=== PATIENT | female | born 1960 | race Caucasian/White ===

== ENCOUNTER 2017-09-26 16:38 | Emergency (ER) | payer OTHER ==
[2017-09-26] MEDS: HYDROcodone/APAP 5/325MG 1 TAB TABLET PO ×2 (18:01)
== END 2017-09-26 18:17 | disposition home or self-care (01) ==
LOC: ER 16:38
DX: S92.152A Displaced avulsion fracture (chip fracture) of left talus, initial encounter for closed fracture (principal); E78.00 Pure hypercholesterolemia, unspecified; I10 Essential (primary) hypertension; M79.7 Fibromyalgia; I25.2 Old myocardial infarction; K21.9 Gastro-esophageal reflux disease without esophagitis; Z85.41 Personal history of malignant neoplasm of cervix uteri; Z88.0 Allergy status to penicillin; Z88.2 Allergy status to sulfonamides; Z90.710 Acquired absence of both cervix and uterus; Z90.49 Acquired absence of other specified parts of digestive tract; Z88.1 Allergy status to other antibiotic agents; Z88.5 Allergy status to narcotic agent; Z86.718 Personal history of other venous thrombosis and embolism; W06.XXXA Fall from bed, initial encounter; Y93.89 Activity, other specified; Y92.89 Other specified places as the place of occurrence of the external cause; Y99.8 Other external cause status
CPT/HCPCS: 29515; 73562; 73610; 99284

== ENCOUNTER → 2017-12-15 | Outpatient (CLI) | payer OTHER | END | disposition home or self-care (01) | LOC: US 15:18 | DX: M25.572 Pain in left ankle and joints of left foot (principal); I70.292 Other atherosclerosis of native arteries of extremities, left leg | CPT/HCPCS: 93926 ==

== ENCOUNTER 2018-09-27 13:22 | Emergency (ER) | payer OTHER ==
[~2018-09-27] VITALS: Ht 166.4 cm; Wt 108.4 kg
[~2018-09-27 13:22] MED LIST: ALBU2.5V8 IH; CHOL2000 PO; CLIN150C14 PO; CRESTOR10 MG PO; DIAZEPAM10 MG PO; DOCU-109 PO; FURO-68 PO; HYDR-3164 PO; HYDR15CR20 TP; KETO15CR2 TP; MELA1TAB10 PO; METH10TA2 PO; MORP15TA PO; OMEP40CA5 PO; PILO5TAB11 PO; POTA10TA12 PO; PROM25TA10 PO; SPIR25TA5 PO; TOPI200T25 PO; URSO300C26 PO; VENL150C PO; WARF-78 PO; WARF6TAB49 PO
--- NOTE | 2018-09-27 15:53 | PHYS DOC ---
Past Medical History Past Medical History: Cancer, DVT, Fibromyalgia, GERD, High Cholesterol, Hypertension, [place], Migraines, Schizophrenia, Other Additional Past Medical Histor: SJOGREN'S,CERVICAL CANCER,GI BLEED Past Surgical History: Cholecystectomy, Hysterectomy, Other Additional Past Surgical Histo: CARDIAC CATH Alcohol Use: None Drug Use: None Adult General Chief Complaint Chief Complaint: MULTIPLE COMPLAINTS HPI HPI Patient is a 58 year old female who presents to the emergency room with complaints of a migraine headache, low back pain, and hematuria for the last 9 days. Patient states her neurologist told her to come to the emergency room. Patient reports that the headache is in the front of her head and describes the pain as a constant pressure, rating it a 10 out of 10 on the pain scale. Patient states there are no alleviating factors, light seems to make the pain worse. Patient reports feeling dizzy with the headache. She denies any numbness , tingling, or weakness with the pain. Patient denies any increased urinary frequency, dysuria, incontinence, or urgency with urination. She denies any abdominal pain or diarrhea. Patient states that for several months she has experienced vomiting after taking her new Tegretol pill. Patient states she used to take Tegretol capsules but ever since the pharmacist switched her to a pill she is not able to tolerate the medication. Pt also reports having hot and cold spells, she has not measured her temperature. Review of Systems Review of Systems Constitutional: Denies fever or chills [] Eyes: Denies redness, vision changes, or eye pain; reports photosensitivity [] HENT: Denies nasal congestion or sore throat [] Respiratory: Denies cough or shortness of breath [] Cardiovascular: No additional information not addressed in HPI [] GI: see hpi : Denies dysuria or increased frequency, Reports difficulty starting to void and hematuria for 9 days[] Musculoskeletal: Denies back pain Integument: reports dry skin Neurologic: Denies focal weakness or sensory changes; see HPI Endocrine: Denies polyuria or polydipsia [] Complete systems were reviewed and found to be within normal limits, except as documented in this note. Current Medications Current Medications Current Medications Medications (Trade) Dose Ordered Sig/Glen Start Time Stop Time Status Last Admin Dose Admin Diphenhydramine HCl (Benadryl) 25 mg 1X ONCE 09/27/18 16:00 09/27/18 16:01 DC 2/21/19 16:49 25 MG Ketorolac Tromethamine (Toradol 15mg Vial) 15 mg 1X ONCE 09/27/18 16:00 09/27/18 16:01 DC 09/27/18 16:48 15 MG Prochlorperazine Edisylate (Compazine) 10 mg 1X ONCE 09/27/18 16:00 09/27/18 16:01 DC 09/27/18 16:48 10 MG Sodium Chloride 1,000 ml @ 1,000 mls/hr 1X ONCE 09/27/18 16:00 09/27/18 16:59 DC 09/27/18 16:48 1,000 MLS/HR Allergies Allergies Allergies Coded Allergies Type Severity Reaction Last Updated Verified Penicillins Allergy Intermediate RASH 09/27/18 Yes Sulfa (Sulfonamide Antibiotics) Allergy Intermediate 09/27/18 Yes adhesive tape Allergy Intermediate 09/27/18 Yes amoxicillin Allergy Intermediate RASH 09/27/18 Yes ciprofloxacin Allergy Intermediate 09/27/18 Yes Tetracyclines Adverse Reaction Mild "SICK" 09/27/18 Yes codeine Adverse Reaction Mild "SICK" 09/27/18 Yes Physical Exam Physical Exam Constitutional: Well developed, well nourished, no acute distress, non-toxic appearance, obese [] HENT: Normocephalic, atraumatic, bilateral external ears normal, oropharynx moist, no oral exudates, nose normal. [] Eyes: PERRLA, EOMI, conjunctiva normal, no discharge. [] Neck: Normal range of motion, no stridor. [] Cardiovascular:Heart rate regular rhythm, no murmur [] Lungs & Thorax: Bilateral breath sounds clear to auscultation [] Abdomen: Soft, no tenderness, no masses, no pulsatile masses. [] Skin: Warm, dry, no erythema; generalized dry flaky skin Back: no CVA tenderness, no bony tenderness or deformity Extremities: No cyanosis, no clubbing, ROM intact, no edema. [] Neurologic: Alert and oriented X 3, normal motor function, normal sensory function, no focal deficits noted. [] Psychologic: Affect normal, judgement normal, mood normal. [] Current Patient Data Vital Signs Vital Signs Date Time Temp Pulse Resp B/P (MAP) Pulse Ox O2 Delivery O2 Flow Rate FiO2 09/27/18 14:25 98.4 92 16 117/65 (82) 96 Room Air 98.4 Lab Values Laboratory Tests Test 09/27/18 16:40 09/27/18 17:20 09/27/18 18:20 White Blood Count 7.1 x10^3/uL (4.0-11.0) Red Blood Count 4.29 x10^6/uL (3.50-5.40) Hemoglobin 12.5 g/dL (12.0-15.5) Hematocrit 38.4 % (36.0-47.0) Mean Corpuscular Volume 90 fL (79-100) Mean Corpuscular Hemoglobin 29 pg (25-35) Mean Corpuscular Hemoglobin Concent 33 g/dL (31-37) Red Cell Distribution Width 14.1 % (11.5-14.5) Platelet Count 159 x10^3/uL (140-400) Neutrophils (%) (Auto) 64 % (31-73) Lymphocytes (%) (Auto) 29 % (24-48) Monocytes (%) (Auto) 5 % (0-9) Eosinophils (%) (Auto) 2 % (0-3) Basophils (%) (Auto) 1 % (0-3) Neutrophils # (Auto) 4.5 x10^3uL (1.8-7.7) Lymphocytes # (Auto) 2.0 x10^3/uL (1.0-4.8) Monocytes # (Auto) 0.4 x10^3/uL (0.0-1.1) Eosinophils # (Auto) 0.1 x10^3/uL (0.0-0.7) Basophils # (Auto) 0.0 x10^3/uL (0.0-0.2) Sodium Level 142 mmol/L (136-145) Potassium Level 3.5 mmol/L (3.5-5.1) Chloride Level 108 mmol/L (98-107) H Carbon Dioxide Level 26 mmol/L (21-32) Anion Gap 8 (6-14) Blood Urea Nitrogen 20 mg/dL (7-20) Creatinine 1.1 mg/dL (0.6-1.0) H Estimated GFR (Cockcroft-Gault) 50.8 BUN/Creatinine Ratio 18 (6-20) Glucose Level 88 mg/dL (70-99) Calcium Level 8.0 mg/dL (8.5-10.1) L Magnesium Level 2.0 mg/dL (1.8-2.4) Total Bilirubin 0.2 mg/dL (0.2-1.0) Aspartate Amino Transferase (AST) 11 U/L (15-37) L Alanine Aminotransferase (ALT) 16 U/L (14-59) Alkaline Phosphatase 119 U/L (46-116) H Total Protein 6.3 g/dL (6.4-8.2) L Albumin 2.6 g/dL (3.4-5.0) L Albumin/Globulin Ratio 0.7 (1.0-1.7) L Urine Collection Type Unknown Urine Color Yellow Urine Clarity Cloudy Urine pH 5.0 Urine Specific [place] 1.015 Urine Protein Negative mg/dL (NEG-TRACE) Urine Glucose (UA) Negative mg/dL (NEG) Urine Ketones (Stick) Negative mg/dL (NEG) Urine Blood Negative (NEG) Urine Nitrite Negative (NEG) Urine Bilirubin Negative (NEG) Urine Urobilinogen Dipstick 0.2 mg/dL (0.2 mg/dL) Urine Leukocyte Esterase Small (NEG) Urine RBC 0 /HPF (0-2) Urine WBC 1-4 /HPF (0-4) Urine Squamous Epithelial Cells Mod /LPF Urine Bacteria Moderate /HPF (0-FEW) Urine Hyaline Casts Few /HPF Urine Mucus Mod /LPF Laboratory Tests 09/27/18 16:40 Laboratory Tests 09/27/18 17:20 EKG EKG [] Radiology/Procedures Radiology/Procedures PROCEDURE: CT HEAD WO CONTRAST CT HEAD WO CONTRAST History: Headache Comparison: December 11, 2015 Technique: Noncontrast CT imaging was performed of the head. Exposure: One or more of the following individualized dose reduction techniques were utilized for this examination: 1. Automated exposure control 2. Adjustment of the mA and/or kV according to patient size 3. Use of iterative reconstruction technique. Findings: No acute extra-axial or parenchymal hemorrhage is identified. There is no significant intra-axial mass effect, midline shift, or extra-axial fluid collection. The blanchard-white differentiation of the major vascular territories is preserved. The ventricles, sulci, and cisterns are within normal limits in size and configuration. The mastoid air cells and the visualized paranasal sinuses are aerated. No acute calvarial abnormality is identified. Impression: 1. No acute intracranial abnormality is identified. [] Course & Med Decision Making Course & Med Decision Making Pertinent Labs and Imaging studies reviewed. (See chart for details) Dx: migraine headache Pt was given 1L NS, 15 toradol, 10 mg compazine, and 25 mg of benadryl. Reports pain reduced from 10 to a 5/10 on the pain scale. CT head was negative. Pt was informed that UA was negative for blood or infection. Advised pt to follow up with PCP in 1-2 days, return to ER if symptoms worsen. Patient verbalized an understanding of home care, medications, follow-up, and return to ED instructions and was in agreement with the plan of care. [] Dragon Disclaimer Dragon Disclaimer This electronic medical record was generated, in whole or in part, using a voice recognition dictation system. Departure Departure Impression: Primary Impression: Migraine Disposition: HOME, SELF-CARE Condition: STABLE Referrals: DANNIELLE STEVENSON APRN (PCP) Patient Instructions: Migraine Headache, [id number] Additional Instructions: Follow up with your doctor in 1-2 days. There was no blood in your urine. Home to rest. Return to the ER if symptoms worsen. Problem Qualifiers Primary Impression: Migraine Migraine type: persistent migraine aura without cerebral infarction Status migrainosus presence: without status migrainosus Intractability: not intractable Qualified Codes: G43.509 - Persistent migraine aura without cerebral infarction, not intractable, without status migrainosus MANUELA CORONEL APRN Sep 27, 2018 15:53
[2018-09-27] MEDS ORDERED: KETOROLAC 15 MG/ML VIAL. IV ONE (16:00)
[2018-09-27] MEDS ORDERED: IV NORMAL SALINE 1000ML BAG 1,000 ML IV ONE (16:00)
[2018-09-27] MEDS ORDERED: PROCHLORPERAZINE 10 MG/2 ML VIAL. IV ONE (16:00)
[2018-09-27] MEDS ORDERED: diphenhydrAMINE 50 MG/ML VIAL IVP ONE (16:00)
[2018-09-27 16:55] LABS: BASO % 1 % (0-3); EOS # 0.1 x10^3/uL (0.0-0.7); EOS % 2 % (0-3); HEMATOCRIT 38.4 % (36.0-47.0); HEMOGLOBIN 12.5 g/dL (12.0-15.5); LYMPH % 29 % (24-48); MEAN CORPUSCULAR HEMOGLOBIN 29 pg (25-35); MEAN CORPUSCULAR HGB CONC 33 g/dL (31-37); MEAN CORPUSCULAR VOLUME 90 fL (79-100); MONO # 0.4 x10^3/uL (0.0-1.1); MONO % 5 % (0-9); NEUT # 4.5 x10^3uL (1.8-7.7); NEUT % 64 % (31-73); PLATELET COUNT 159 x10^3/uL (140-400); RED BLOOD COUNT 4.29 x10^6/uL (3.50-5.40); RED CELL DISTRIBUTION WIDTH 14.1 % (11.5-14.5); WHITE BLOOD COUNT 7.1 x10^3/uL (4.0-11.0)
--- NOTE | 2018-09-27 17:44 | RAD ---
CT HEAD WO CONTRAST History: Headache Comparison: December 11, 2015 Technique: Noncontrast CT imaging was performed of the head. Exposure: One or more of the following individualized dose reduction techniques were utilized for this examination: 1. Automated exposure control 2. Adjustment of the mA and/or kV according to patient size 3. Use of iterative reconstruction technique. Findings: No acute extra-axial or parenchymal hemorrhage is identified. There is no significant intra-axial mass effect, midline shift, or extra-axial fluid collection. The blanchard-white differentiation of the major vascular territories is preserved. The ventricles, sulci, and cisterns are within normal limits in size and configuration. The mastoid air cells and the visualized paranasal sinuses are aerated. No acute calvarial abnormality is identified. Impression: 1. No acute intracranial abnormality is identified. Electronically signed by: Pascual Cruz MD (09/27/2018 5:41 PM) [id number]
[2018-09-27 17:51] LABS: CREATININE 1.1 mg/dL (0.6-1.0); GFR 50.8; POTASSIUM 3.5 mmol/L (3.5-5.1)
[2018-09-27 17:57] LABS: ALBUMIN 2.6 g/dL (3.4-5.0); ALBUMIN/GLOBULIN RATIO 0.7 (1.0-1.7); TOTAL BILIRUBIN 0.2 mg/dL (0.2-1.0); TOTAL PROTEIN 6.3 g/dL (6.4-8.2)
[2018-09-27 18:29] LABS: BILIRUBIN,URINE NEGATIVE (NEG); CLARITY,URINE CLOUDY; COLOR,URINE YELLOW; NITRITE,URINE NEGATIVE (NEG); PROTEIN,URINE NEGATIVE (NEG-TRACE); UROBILINOGEN,URINE 0.2 mg/dL (0.2 mg/dL)
[2018-09-27 18:45] LABS: SQUAMOUS EPITHELIAL CELL,UR MOD /LPF
[2018-09-27 18:46] LABS: HYALINE CASTS, URINE FEW /HPF; RBC,URINE 0 /HPF (0-2)
[2018-09-27 18:47] LABS: BACTERIA,URINE MODERATE /HPF (0-FEW)
[2018-09-27 19:05] VITALS: BP 146/64
== END 2018-09-27 19:25 | disposition home or self-care (01) ==
LOC: ER 13:22
DX: G43.509 Persistent migraine aura without cerebral infarction, not intractable, without status migrainosus (principal); M54.5 Low back pain; R31.9 Hematuria, unspecified; R42 Dizziness and giddiness; K21.9 Gastro-esophageal reflux disease without esophagitis; E78.00 Pure hypercholesterolemia, unspecified; I10 Essential (primary) hypertension; I25.2 Old myocardial infarction; F20.9 Schizophrenia, unspecified; Z86.718 Personal history of other venous thrombosis and embolism; Z88.0 Allergy status to penicillin; Z88.1 Allergy status to other antibiotic agents; Z88.2 Allergy status to sulfonamides; Z88.5 Allergy status to narcotic agent; Z88.8 Allergy status to other drugs, medicaments and biological substances
CPT/HCPCS: 36415; 70450; 80053; 81001; 83735; 85025; 87086; 96361; 96374; 96375; 99284; J0780; J1200; J1885; J7030

== ENCOUNTER → 2019-05-16 | Day surgery (SDC) | payer OTHER, MEDICAID ==
[~2019-05-16] MED LIST changes: +DIPH25CA58 PO; +IV RINGERS,LACTATED 1000ML 1,000 ML IV ONE; +LIDOCAINE 2% PF 5 ML VIAL. ONE; +OMEP40CA45 PO; -OMEP40CA5 PO; +PROPOFOL 20 ML IV ONE
[2019-05-16 13:48] VITALS: BP 109/53
== END ==
LOC: SURG 12:19
PROVIDERS: ATTEND Internal Medicine Gastroenterology
DX: K22.2 Esophageal obstruction (principal); K29.50 Unspecified chronic gastritis without bleeding; K21.9 Gastro-esophageal reflux disease without esophagitis; D64.9 Anemia, unspecified; M79.7 Fibromyalgia; I80.9 Phlebitis and thrombophlebitis of unspecified site; K58.8 Other irritable bowel syndrome; G43.909 Migraine, unspecified, not intractable, without status migrainosus; F41.9 Anxiety disorder, unspecified; E78.00 Pure hypercholesterolemia, unspecified; I25.2 Old myocardial infarction; F15.90 Other stimulant use, unspecified, uncomplicated; Z88.1 Allergy status to other antibiotic agents; Z88.5 Allergy status to narcotic agent; Z88.0 Allergy status to penicillin; Z88.8 Allergy status to other drugs, medicaments and biological substances; Z87.39 Personal history of other diseases of the musculoskeletal system and connective tissue; Z86.73 Personal history of transient ischemic attack (TIA), and cerebral infarction without residual deficits; Z85.43 Personal history of malignant neoplasm of ovary; Z87.891 Personal history of nicotine dependence; Z86.19 Personal history of other infectious and parasitic diseases; Z90.49 Acquired absence of other specified parts of digestive tract; Z90.710 Acquired absence of both cervix and uterus; Z98.51 Tubal ligation status; Z90.722 Acquired absence of ovaries, bilateral
CPT/HCPCS: 43235; 43450; J2001; J2704

== ENCOUNTER → 2019-06-25 | Outpatient (CLI) | payer OTHER, MEDICAID ==
[2019-05-16 13:48] VITALS: BP 109/53
[~2019-06-25] MED LIST changes: -IV RINGERS,LACTATED 1000ML 1,000 ML IV ONE; -LIDOCAINE 2% PF 5 ML VIAL. ONE; -PROPOFOL 20 ML IV ONE
--- NOTE | 2019-06-25 13:49 | RAD ---
DATE: 06/25/2019. EXAM: DIGITAL DIAGNOSTIC BILATERAL. HISTORY: Fibrocystic disease. COMPARISON: 05/31/2012, 12/15/2015. This study was interpreted with the benefit of Computerized Aided Detection (CAD). FINDINGS: Breast Density: SCATTERED The breast parenchyma shows scattered fibroglandular densities. Breast parenchyma level B.. The parenchyma pattern is stable. Small nodules on the right have stable correlates. Scattered calcifications are benign. There are no suspicious masses, microcalcifications or architectural distortion. BI-RADS CATEGORY: 2 BENIGN FINDING(S). RECOMMENDED FOLLOW-UP: 12M 12 MONTH FOLLOW-UP. 1. Recommend ongoing clinical follow-up of palpable foci or fibrocystic complaints. PQRS compliance statement: Patient information was entered into a reminder system with a target due date 06/25/2020 for the next mammogram. Mammography is a sensitive method for finding small breast cancers, but it does not detect them all and is not a substitute for careful clinical examination. A negative mammogram does not negate a clinically suspicious finding and should not result in delay in biopsying a clinically suspicious abnormality. "Our facility is accredited by the [employer] Mammography Program."
== END | disposition home or self-care (01) ==
LOC: MAMMO 12:45
PROVIDERS: ATTEND Nurse Practitioner Family
DX: N63.10 Unspecified lump in the right breast, unspecified quadrant (principal); R92.1 Mammographic calcification found on diagnostic imaging of breast; N60.19 Diffuse cystic mastopathy of unspecified breast
CPT/HCPCS: 77066

== ENCOUNTER 2019-08-29 19:08 | Emergency (ER) | payer OTHER, MEDICAID ==
[~2019-08-29] VITALS: Ht 167.6 cm; Wt 82.0 kg
[~2019-08-29 19:08] MED LIST changes: -POTA10TA12 PO; +POTASSIUM CHLO10 ME1 PO
--- NOTE | 2019-08-29 19:24 | PHYS DOC ---
Past Medical History Past Medical History: Cancer, DVT, Fibromyalgia, GERD, High Cholesterol, Hypertension, [place], Migraines, Schizophrenia, Other Additional Past Medical Histor: SJOGREN'S,CERVICAL CANCER,GI BLEED Past Surgical History: Cholecystectomy, Hysterectomy, Other Additional Past Surgical Histo: CARDIAC CATH Alcohol Use: None Drug Use: None Adult General HPI HPI 59-year-old female presents to emergency department with complaints of a fall. Patient has chronic anticoagulation history of DVT, hypertension, hyperlipidemia, schizophrenia. States she fell partially 2 days ago, she recently was very per primary care physician with her INR 1.7. Patient reports to Su cyst on her bilateral lower extremities. She has evidence of bruising and ecchymosis to her posterior thigh on both sides. There is no evidence of any cords appreciated on examination. Patient was instructed by her primary care physician to come to the emergency department to rule out clot. She has well describes shortness of breath, she recently was seen wound again with her primary care physician and a chest x-ray was ordered however she has not obtained. When asked why the chest x-ray was ordered she states she was coughing and had shortness of breath and her primary care physician to rule out pneumonia. Patient remains afebrile she's not had any particular concern for systemic symptoms. Review of Systems Review of Systems Constitutional: Denies fever or chills [] Respiratory: Denies cough/+ shortness of breath [] Cardiovascular: No additional information not addressed in HPI [] GI: Denies abdominal pain, + nausea, no vomiting, bloody stools or diarrhea [] Musculoskeletal: Denies back pain or joint pain [] Neurologic: Denies headache, focal weakness or sensory changes [] All other systems were reviewed and found to be within normal limits, except as documented in this note. Current Medications Current Medications Current Medications Medications (Trade) Dose Ordered Sig/Glen Start Time Stop Time Status Last Admin Dose Admin Acetaminophen (Tylenol) 1,000 mg 1X ONCE 08/29/19 22:00 08/29/19 22:01 DC Acetaminophen/ Hydrocodone Bitart (Lortab 5/325) 1 tab 1X ONCE 08/29/19 21:00 08/29/19 21:07 DC Allergies Allergies Allergies Coded Allergies Type Severity Reaction Last Updated Verified Penicillins Allergy Intermediate RASH 05/16/19 Yes Sulfa (Sulfonamide Antibiotics) Allergy Intermediate 05/16/19 Yes adhesive tape Allergy Intermediate 05/16/19 Yes amoxicillin Allergy Intermediate RASH 05/16/19 Yes ciprofloxacin Allergy Intermediate 05/16/19 Yes Tetracyclines Adverse Reaction Intermediate "SICK" 05/16/19 Yes codeine Adverse Reaction Mild "SICK" 09/27/18 Yes Physical Exam Physical Exam Constitutional: Well developed, well nourished, no acute distress, non-toxic appearance. [] HENT: Normocephalic, atraumatic, bilateral external ears normal, oropharynx moist, no oral exudates, nose normal. [] Eyes: PERRLA, EOMI, conjunctiva normal, no discharge. [] Cardiovascular:Heart rate regular rhythm, no murmur [] Lungs & Thorax: Bilateral breath sounds clear to auscultation [] Abdomen: Bowel sounds normal, soft, no tenderness, no masses, no pulsatile masses. [] Skin: Warm, dry, no erythema, no rash. [] Extremities: No tenderness, no edema, posterior thigh echymosis, no chords appreciated[] Neurologic: Alert and oriented X 3, no focal deficits noted. [] Psychologic: Affect normal, judgement normal, mood normal. [] Current Patient Data Vital Signs Vital Signs Date Time Temp Pulse Resp B/P (MAP) Pulse Ox O2 Delivery O2 Flow Rate FiO2 08/29/19 22:43 66 20 92 08/29/19 19:08 98.4 134/67 (89) Room Air 98.4 Lab Values Laboratory Tests Test 08/29/19 19:35 White Blood Count 5.6 x10^3/uL (4.0-11.0) Red Blood Count 3.69 x10^6/uL (3.50-5.40) Hemoglobin 10.8 g/dL (12.0-15.5) L Hematocrit 32.8 % (36.0-47.0) L Mean Corpuscular Volume 89 fL (79-100) Mean Corpuscular Hemoglobin 29 pg (25-35) Mean Corpuscular Hemoglobin Concent 33 g/dL (31-37) Red Cell Distribution Width 13.9 % (11.5-14.5) Platelet Count 151 x10^3/uL (140-400) Neutrophils (%) (Auto) 64 % (31-73) Lymphocytes (%) (Auto) 28 % (24-48) Monocytes (%) (Auto) 6 % (0-9) Eosinophils (%) (Auto) 2 % (0-3) Basophils (%) (Auto) 1 % (0-3) Neutrophils # (Auto) 3.6 x10^3/uL (1.8-7.7) Lymphocytes # (Auto) 1.6 x10^3/uL (1.0-4.8) Monocytes # (Auto) 0.3 x10^3/uL (0.0-1.1) Eosinophils # (Auto) 0.1 x10^3/uL (0.0-0.7) Basophils # (Auto) 0.0 x10^3/uL (0.0-0.2) Prothrombin Time 21.0 SEC (11.7-14.0) H Prothrombin Time INR 1.8 (0.8-1.1) H Sodium Level 142 mmol/L (136-145) Potassium Level 3.6 mmol/L (3.5-5.1) Chloride Level 107 mmol/L (98-107) Carbon Dioxide Level 27 mmol/L (21-32) Anion Gap 8 (6-14) Blood Urea Nitrogen 23 mg/dL (7-20) H Creatinine 1.3 mg/dL (0.6-1.0) H Estimated GFR (Cockcroft-Gault) 41.8 BUN/Creatinine Ratio 18 (6-20) Glucose Level 114 mg/dL (70-99) H Calcium Level 8.4 mg/dL (8.5-10.1) L Total Bilirubin 0.2 mg/dL (0.2-1.0) Aspartate Amino Transferase (AST) 16 U/L (15-37) Alanine Aminotransferase (ALT) 15 U/L (14-59) Alkaline Phosphatase 127 U/L (46-116) H Total Protein 6.7 g/dL (6.4-8.2) Albumin 3.0 g/dL (3.4-5.0) L Albumin/Globulin Ratio 0.8 (1.0-1.7) L Laboratory Tests 08/29/19 19:35 Laboratory Tests 08/29/19 19:35 EKG EKG [] Radiology/Procedures Radiology/Procedures [] Course & Med Decision Making Course & Med Decision Making Pertinent Labs and Imaging studies reviewed. (See chart for details) []59-year-old female presents to emergency department with complaints of a fall. Patient has chronic anticoagulation history of DVT, hypertension, hyperlipidemia, schizophrenia. States she fell partially 2 days ago, she recently was very per primary care physician with her INR 1.7. Patient reports to Su cyst on her bilateral lower extremities. She has evidence of bruising and ecchymosis to her posterior thigh on both sides. There is no evidence of any cords appreciated on examination. Patient was instructed by her primary care physician to come to the emergency department to rule out clot. She has well describes shortness of breath, she recently was seen wound again with her primary care physician and a chest x-ray was ordered however she has not obtained. When asked why the chest x-ray was ordered she states she was coughing and had shortness of breath and her primary care physician to rule out pneumonia. Patient remains afebrile she's not had any particular concern for systemic symptoms. INR 1.8 US of bilateral lower extremities negative for DVT Discussed findings with patient Plan dc home Return precautions discussed Dragon Disclaimer Dragon Disclaimer This electronic medical record was generated, in whole or in part, using a voice recognition dictation system. Departure Departure Impression: Primary Impression: Fall with injury Additional Impressions: Swelling of lower leg Hematoma Disposition: 01 HOME, SELF-CARE Condition: STABLE Referrals: DANNIELLE STEVENSON APRN (PCP) Patient Instructions: Fall Prevention and Home Safety, [id number], Hematoma, [id number] Additional Instructions: Recommend follow up with PCP 3 - 5 days Return to the ER with worsening symptoms, intractable pain, fever, altered mental status Tylenol/Motrin as needed for pain Recommend following up with PCP regarding adjustment to INR/coumadin Problem Qualifiers Primary Impression: Fall with injury Encounter type: initial encounter Qualified Codes: W19.XXXA - Unspecified fall, initial encounter JOLLY TURNER MD Aug 29, 2019 19:24
[2019-08-29 19:42] LABS: BASO % 1 % (0-3); EOS # 0.1 x10^3/uL (0.0-0.7); EOS % 2 % (0-3); HEMATOCRIT 32.8 % (36.0-47.0); HEMOGLOBIN 10.8 g/dL (12.0-15.5); LYMPH # 1.6 x10^3/uL (1.0-4.8); LYMPH % 28 % (24-48); MEAN CORPUSCULAR HEMOGLOBIN 29 pg (25-35); MEAN CORPUSCULAR HGB CONC 33 g/dL (31-37); MEAN CORPUSCULAR VOLUME 89 fL (79-100); MONO # 0.3 x10^3/uL (0.0-1.1); MONO % 6 % (0-9); NEUT # 3.6 x10^3/uL (1.8-7.7); NEUT % 64 % (31-73); PLATELET COUNT 151 x10^3/uL (140-400); RED BLOOD COUNT 3.69 x10^6/uL (3.50-5.40); RED CELL DISTRIBUTION WIDTH 13.9 % (11.5-14.5); WHITE BLOOD COUNT 5.6 x10^3/uL (4.0-11.0)
[2019-08-29 19:59] LABS: CALCIUM 8.4 mg/dL (8.5-10.1); CREATININE 1.3 mg/dL (0.6-1.0); GFR 41.8; POTASSIUM 3.6 mmol/L (3.5-5.1)
[2019-08-29 20:05] LABS: ALBUMIN/GLOBULIN RATIO 0.8 (1.0-1.7); TOTAL BILIRUBIN 0.2 mg/dL (0.2-1.0); TOTAL PROTEIN 6.7 g/dL (6.4-8.2)
--- NOTE | 2019-08-29 20:19 | RAD ---
Exam: Chest one view INDICATION: Shortness of breath TECHNIQUE: Frontal view of the chest Comparisons: None FINDINGS: The cardiomediastinal silhouette and pulmonary vessels are within normal limits. The lung and pleural spaces are clear. IMPRESSION: No acute cardiopulmonary process. Electronically signed by: Meng Houston MD (08/29/2019 8:16 PM) [facility]
[2019-08-29] MEDS: HYDROcodone/APAP 5/325MG 1 TAB TABLET PO ONE (21:00)
--- NOTE | 2019-08-29 21:48 | RAD ---
Bilateral Lower Extremity Venous Doppler Ultrasound History: Bilateral lower extremity pain and bruising and fall 2 days ago Comparison: None Procedure: Color flow, duplex, spectral analysis and 2D images are obtained with and without compression in the area of the common femoral vein, superficial femoral vein - femoral vein junction, main femoral vein (superficial femoral vein) and popliteal vein. Veins of the proximal calf are also imaged. Findings: There is normal duplex flow, color flow and compressibility of all visualized vein segments. No evidence of deep venous thrombus is present. Impression: No evidence of DVT. Electronically signed by: Yefri Rivera III, MD (08/29/2019 9:45 PM) [id number]
[2019-08-29] MEDS: ACETAMINOPHEN 500 MG TABLET PO ONE (21:54)
[2019-08-29 23:43] VITALS: BP 125/61
--- NOTE | 2019-08-30 07:03 | EKG ---
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
== END 2019-08-30 00:11 | disposition home or self-care (01) ==
LOC: ER 19:08
DX: S80.12XA Contusion of left lower leg, initial encounter (principal); S80.11XA Contusion of right lower leg, initial encounter; T14.8XXA Other injury of unspecified body region, initial encounter; R11.0 Nausea; R06.02 Shortness of breath; M79.7 Fibromyalgia; K21.9 Gastro-esophageal reflux disease without esophagitis; E78.00 Pure hypercholesterolemia, unspecified; I10 Essential (primary) hypertension; I25.2 Old myocardial infarction; G43.909 Migraine, unspecified, not intractable, without status migrainosus; F20.9 Schizophrenia, unspecified; Z90.710 Acquired absence of both cervix and uterus; Z86.718 Personal history of other venous thrombosis and embolism; Z90.49 Acquired absence of other specified parts of digestive tract; Z85.9 Personal history of malignant neoplasm, unspecified; Z98.890 Other specified postprocedural states; Z88.0 Allergy status to penicillin; Z88.2 Allergy status to sulfonamides; Z88.1 Allergy status to other antibiotic agents; Z88.5 Allergy status to narcotic agent; Z88.8 Allergy status to other drugs, medicaments and biological substances; W19.XXXA Unspecified fall, initial encounter; Y93.89 Activity, other specified; Y92.89 Other specified places as the place of occurrence of the external cause; Y99.8 Other external cause status
CPT/HCPCS: 36415; 71045; 80053; 85025; 85610; 93005; 93970; 99285

== ENCOUNTER → 2020-11-02 | Outpatient (CLI) | payer OTHER, MEDICAID ==
[2019-09-07 22:10] VITALS: BP 143/63
[~2020-11-02] MED LIST changes: -CLIN150C14 PO; +CLIN150C15 PO; -WARF-78 PO; +WARF5TAB2 PO
--- NOTE | 2020-11-02 14:45 | RAD ---
EXAM: Head CT without contrast. HISTORY: Migraine. TECHNIQUE: Computed tomographic images of the head were obtained without contrast. *One or more of the following individualized dose reduction techniques were utilized for this examina tion: 1. Automated exposure control. 2. Adjustment of the mA and/or kV according to patient size. 3. Use of iterative reconstruction technique. COMPARISON: None. FINDINGS: There is no acute or subacute extra-axial or intraparenchymal hemorrhage. There is no mass effect or midline shift. There is no hydrocephalus. There are areas of decreased attenuation within the cerebral white matter, nonspecific and likely rel ated to chronic small vessel disease. There may be small chronic lacunar infarct within the left basi lar pneumonia The visualized portions of the orbits, paranasal sinuses and mastoid air cells are unremarkable. No s uspicious calvarial lesion is seen. There is mild hyperostosis frontalis interna. IMPRESSION: No acute intracranial findings. Electronically signed by: Mónica Russell MD (11/02/2020 2:42 PM) [id number]
--- NOTE | 2020-11-03 09:31 | RAD ---
PROCEDURE: XR SACRUM AND COCCYX 2+VIEWS, XR LT WRIST 3VIEWS STUDY DATE: 11/02/2020 CLINICAL INDICATION / HISTORY: Reason: FIBROMYALGIA. COCCYX PAIN.FELL ON BOTTOM. / Spl. Instructions: / History: . TECHNIQUE: Left wrist 3 views. AP, lateral, oblique views. COMPARISON: None FINDINGS: The radiocarpal and intracarpal relationships are maintained. There is no fracture or dislo cation. The bone density is normal. No soft tissue abnormality is seen. IMPRESSION: No acute osseous abnormality. Sacrum and coccyx 3 views INDICATION: Coccygeal pain after falling. History of fibromyalgia COMPARISON: None TECHNIQUE: AP views of the sacrum and coccyx on the lateral view of the sacrum and coccyx were obtain ed. They show no fracture or aggressive appearing bony lesions. The visualized sacroiliac joints, hips an d pubic symphysis are unremarkable. Soft tissues reveal moderate stool in the large bowel and otherwi se are unremarkable as well. IMPRESSION: No acute fracture shown by x-ray in the sacrum or coccyx. Electronically signed by: Mele Reid MD (11/03/2020 9:29 AM) [id number]
== END ==
LOC: CT 14:25
PROVIDERS: ATTEND Psychiatry & Neurology Neurology with Special Qualifications in Child Neurology
DX: G43.909 Migraine, unspecified, not intractable, without status migrainosus (principal); M85.2 Hyperostosis of skull; M25.532 Pain in left wrist; M53.3 Sacrococcygeal disorders, not elsewhere classified; Z87.39 Personal history of other diseases of the musculoskeletal system and connective tissue
CPT/HCPCS: 70450; 72220; 73120

== ENCOUNTER 2020-11-07 16:46 | Emergency (ER) | payer OTHER, MEDICAID ==
[~2020-11-07] VITALS: Ht 165.1 cm; Wt 105.0 kg
[2020-11-07] MEDS ORDERED: fentaNYL PF VIAL 100 MCG/2 ML VIAL IV PRN (17:15)
--- NOTE | 2020-11-07 18:01 | RAD ---
PQRS Compliance Statement: One or more of the following individualized dose reduction techniques were utilized for this examinat ion: 1. Automated exposure control 2. Adjustment of the mA and/or kV according to patient size 3. Use of iterative reconstruction technique CT head , maxillofacial and cervical spine without contrast 11/07/2020 5:22 PM INDICATION: Fall, pain COMPARISON: CT head 11/02/2020 TECHNIQUE: Multiple axial CT images of the head were obtained from skull base through the vertex with out intravenous contrast. Multiple axial CT images of the cervical spine and maxillofacial structures were obtained without intravenous contrast. Coronal and sagittal reformats are provided. FINDINGS: Head and maxillofacial: Ventricles, sulci and basal cisterns are within normal limits. There is no hydrocephalus. Gonzáles-white matter differentiation is normal. There is no acute intracranial hemorrhage. There is no mass, mass e ffect or midline shift. Posterior fossa is normal in appearance. Osseous orbits are intact. Globes are spherical and contour. There is no lens dislocation. Extraocula r muscles are intact. No intraconal or extraconal mass is identified. Skull base is intact. Nasal bones are intact. Nasal septum is predominantly midline. Is mild mucosal thickening of the righ t maxillary sinus ostiomeatal units are patent.. No acute fracture of the paranasal sinuses is identi fied. Pterygoid plates are intact. Temporomandibular joints are well aligned. Mastoid air cells are well aerated. Middle ear cavities ar e well aerated. Visualized nasopharynx and oropharynx are intact. Soft tissues are normal. Right subm andibular lymph node measures 10 mm by short axis, likely reactive. Additional right submandibular ly mph node measures 8 mm by short axis. Maxilla and mandible are intact. Visualized dentition appear normal. Cervical spine: Alignment of the cervical spine is normal. Skull base is intact. Craniocervical junction is normal in appearance. Atlantoaxial articulation is normal. Vertebral body heights are maintained without evidence for acute fracture. Facet joints are within normal limits. No significant osseous neural foraminal stenosis. No significa nt osseous spinal canal stenosis. Transverse foramen are intact. There is no prevertebral soft tissue swelling. Thyroid gland is normal in appearance. Visualized port ions of the lung apices are normal without evidence for suspicious pulmonary nodule or infiltrate. IMPRESSION: 1. No acute intracranial hemorrhage. 2. No acute fracture of the maxillofacial structures. 3. No acute fracture or malalignment of the cervical spine. 4. Borderline enlarged right submandibular lymph nodes. 3 month follow-up neck CT could be of benefit to assess stability. Electronically signed by: Kaylie Sheffield MD (11/07/2020 5:59 PM) [facility]
[2020-11-07 18:17] LABS: BASO # 0.1 x10^3/uL (0.0-0.2); BASO % 1 % (0-3); EOS # 0.1 x10^3/uL (0.0-0.7); EOS % 2 % (0-3); HEMATOCRIT 33.3 % (36.0-47.0); HEMOGLOBIN 10.9 g/dL (12.0-15.5); LYMPH # 1.5 x10^3/uL (1.0-4.8); LYMPH % 25 % (24-48); MEAN CORPUSCULAR HEMOGLOBIN 29 pg (25-35); MEAN CORPUSCULAR HGB CONC 33 g/dL (31-37); MEAN CORPUSCULAR VOLUME 88 fL (79-100); MONO # 0.3 x10^3/uL (0.0-1.1); MONO % 6 % (0-9); NEUT # 3.8 x10^3/uL (1.8-7.7); NEUT % 66 % (31-73); PLATELET COUNT 158 x10^3/uL (140-400); RED BLOOD COUNT 3.78 x10^6/uL (3.50-5.40); RED CELL DISTRIBUTION WIDTH 14.1 % (11.5-14.5); WHITE BLOOD COUNT 5.8 x10^3/uL (4.0-11.0)
[2020-11-07 18:29] LABS: PROTHROMBIN TIME PATIENT 31.6 SEC (11.7-14.0)
[2020-11-07 18:35] LABS: CALCIUM 8.4 mg/dL (8.5-10.1); CREATININE 1.1 mg/dL (0.6-1.0); GFR 50.5; POTASSIUM 3.5 mmol/L (3.5-5.1)
[2020-11-07 18:40] LABS: ALBUMIN/GLOBULIN RATIO 0.8 (1.0-1.7); TOTAL BILIRUBIN 0.1 mg/dL (0.2-1.0); TOTAL PROTEIN 6.9 g/dL (6.4-8.2)
--- NOTE | 2020-11-07 18:47 | RAD ---
XR CHEST 1V 11/07/2020 5:40 PM INDICATION: Bilateral lower extremity swelling COMPARISON: 09/07/2019 TECHNIQUE: Portable frontal view of the chest is provided. FINDINGS: The cardiomediastinal silhouette is within normal limits. Lungs are clear. There are no significant pleural effusions. There is no pulmonary vascular congestion. No pneumothora x. No suspicious osseous abnormality. IMPRESSION: There is no acute cardiopulmonary process. Electronically signed by: Kaylie Sheffield MD (11/07/2020 6:45 PM) [facility]
--- NOTE | 2020-11-07 18:48 | RAD ---
XR HUMERUS_LT 2 VIEWS 11/07/2020 5:40 PM INDICATION: Fall, pain COMPARISON: None available. TECHNIQUE: 2 views of left humerus are provided. FINDINGS/ IMPRESSION: There is no acute fracture or dislocation. Joint spaces are maintained. Bone mineralization is within normal limits. Regional soft tissues are within normal limits. There is no soft tissue gas or osseou s erosion. No radiopaque foreign body. Electronically signed by: Kaylie Sheffield MD (11/07/2020 6:45 PM) [facility]
[2020-11-07 18:59] LABS: BILIRUBIN,URINE NEGATIVE (NEG); CLARITY,URINE CLEAR; COLOR,URINE YELLOW; NITRITE,URINE NEGATIVE (NEG); PH,URINE 5.5 (<5.0-8.0); PROTEIN,URINE NEGATIVE (NEG-TRACE)
[2020-11-07 19:06] LABS: HYALINE CASTS, URINE FEW /HPF
[2020-11-07 19:07] LABS: BACTERIA,URINE 0 /HPF (0-FEW); RBC,URINE 0 /HPF (0-2); WBC,URINE 0 /HPF (0-4)
[2020-11-07 19:36] VITALS: BP 122/56
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
--- NOTE | 2020-11-07 19:53 | EKG ---
[facility] [address] [place] [address] Test Date: 2020-11-07 Test Time: 17:58:47 Pat Name: HEBER MARINO Department: Room: Gender: F Data Collector: : 1960 Requested By: REESE RUSSO Order Number: [id number] Reading MD: Measurements Intervals [place] Rate: 71 P: 7 DE: 156 QRS: -7 QRSD: 86 T: 21 QT: 396 QTc: 435 Interpretive Statements SINUS RHYTHM LEFTWARD AXIS R-S TRANSITION ZONE IN V LEADS DISPLACED TO THE LEFT QRS(T) CONTOUR ABNORMALITY CONSIDER INFERIOR INFARCT POSSIBLY ABNORMAL ECG RI6.02 No previous ECG available for comparison
== END 2020-11-07 19:53 | disposition home or self-care (01) ==
LOC: ER 16:46
DX: S00.83XA Contusion of other part of head, initial encounter (principal); M25.512 Pain in left shoulder; R60.0 Localized edema; Z79.01 Long term (current) use of anticoagulants; M79.7 Fibromyalgia; K21.9 Gastro-esophageal reflux disease without esophagitis; E78.00 Pure hypercholesterolemia, unspecified; I10 Essential (primary) hypertension; I25.2 Old myocardial infarction; G43.909 Migraine, unspecified, not intractable, without status migrainosus; F20.9 Schizophrenia, unspecified; Z87.891 Personal history of nicotine dependence; Z90.49 Acquired absence of other specified parts of digestive tract; Z90.710 Acquired absence of both cervix and uterus; Z85.9 Personal history of malignant neoplasm, unspecified; Z88.0 Allergy status to penicillin; Z88.2 Allergy status to sulfonamides; Z88.1 Allergy status to other antibiotic agents; Z88.5 Allergy status to narcotic agent; Z88.8 Allergy status to other drugs, medicaments and biological substances; W06.XXXA Fall from bed, initial encounter; Y93.89 Activity, other specified; Y92.89 Other specified places as the place of occurrence of the external cause; Y99.8 Other external cause status
CPT/HCPCS: 36415; 70450; 70486; 71045; 72125; 73060; 80053; 81001; 83880; 84484; 85025; 85610; 93005; 96374; 99285; J3010

== ENCOUNTER → 2020-12-04 | Outpatient (CLI) | payer OTHER, MEDICAID ==
[2020-11-07 19:36] VITALS: BP 122/56
[~2020-12-04] MED LIST changes: -OMEP40CA45 PO; +OMEP40CA7 PO
--- NOTE | 2020-12-04 14:20 | RAD ---
EXAM: Mandible, 4 views. HISTORY: Fall. Pain. COMPARISON: None. FINDINGS: 4 views of the mandible are obtained. No displaced fracture is seen. There are multiple mis sing teeth and mandibular restorations. There is no or significant nasal septal deviation. The parana jeancarlos sinuses are clear. No calvarial lesion is seen. IMPRESSION: No acute osseous finding. Electronically signed by: Mónica Russell MD (12/04/2020 2:17 PM) [id number]
== END ==
LOC: RAD 12:25
PROVIDERS: ATTEND Nurse Practitioner Family
DX: R68.84 Jaw pain (principal)
CPT/HCPCS: 70110

== ENCOUNTER 2021-03-15 22:15 | Emergency (ER) | payer OTHER, MEDICAID ==
[~2021-03-15] VITALS: Ht 167.6 cm; Wt 200.0 kg
[~2021-03-15 22:15] MED LIST changes: -CLIN150C15 PO; +CLIN150C16 PO; +METH-572 PO; -METH10TA2 PO
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
[2021-03-16] MEDS ORDERED: MORPHINE SULFATE 10 MG/ML VIAL. IV ONE (02:45)
[2021-03-16 03:01] LABS: BASO # 0.1 x10^3/uL (0.0-0.2); BASO % 1 % (0-3); EOS # 0.1 x10^3/uL (0.0-0.7); EOS % 2 % (0-3); HEMATOCRIT 36.2 % (36.0-47.0); HEMOGLOBIN 11.6 g/dL (12.0-15.5); LYMPH # 2.2 x10^3/uL (1.0-4.8); LYMPH % 31 % (24-48); MEAN CORPUSCULAR HEMOGLOBIN 28 pg (25-35); MEAN CORPUSCULAR HGB CONC 32 g/dL (31-37); MEAN CORPUSCULAR VOLUME 88 fL (79-100); MONO # 0.5 x10^3/uL (0.0-1.1); MONO % 7 % (0-9); NEUT # 4.3 x10^3/uL (1.8-7.7); NEUT % 59 % (31-73); PLATELET COUNT 152 x10^3/uL (140-400); RED BLOOD COUNT 4.13 x10^6/uL (3.50-5.40); RED CELL DISTRIBUTION WIDTH 14.5 % (11.5-14.5); WHITE BLOOD COUNT 7.3 x10^3/uL (4.0-11.0)
[2021-03-16 03:12] LABS: CALCIUM 8.9 mg/dL (8.5-10.1); CREATININE 1.2 mg/dL (0.6-1.0); GFR 45.5; POTASSIUM 4.6 mmol/L (3.5-5.1)
--- NOTE | 2021-03-16 03:55 | RAD ---
STUDY: US DPLX VENOUS EXTREMITY LOWER LT INDICATION: Left lower extremity swelling and pain. DVT. TECHNIQUE: Color-flow and pulsed wave duplex ultrasound with compression of venous structures of the left lower extremity. COMPARISON: None Available FINDINGS: Duplex ultrasound with compression of the deep venous structures of the left lower extremity from the common femoral vein through the popliteal vein is negative for DVT. The posterior tibial and peroneal veins are segmentally visualized and patent where seen. Normal veno us waveforms and augmentation are noted throughout. IMPRESSION: No deep venous thrombosis throughout the left lower extremity. Electronically signed by: JORGE MARIE MD (03/16/2021 3:52 AM) [facility]
[2021-03-16 04:02] LABS: PROTHROMBIN TIME PATIENT 20.1 SEC (11.7-14.0)
[2021-03-16] MEDS ORDERED: fentaNYL PF VIAL 100 MCG/2 ML VIAL IVP ONE (04:15)
[2021-03-16] MEDS ORDERED: MORPHINE SULFATE 4 MG/ML INJ. IV ONE (04:45)
[2021-03-16 04:59] VITALS: BP 118/64
--- NOTE | 2021-03-16 05:09 | EKG ---
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
--- NOTE | 2021-03-16 05:54 | RAD ---
Study: XR FEMUR_LEFT Indication: Fall. Comparison: Left knee radiographs 09/26/2017 Findings: Degraded study on account of patient body habitus. No acute fracture is identified. Alignment at the left hip is within normal limits. Maintained joint space height at the left hip. Chronic ossification above the acetabulum. Incompletely characterized degenerative changes at the knee. Impression: 1. Degraded study on account of patient body habitus. 2. No displaced fracture of the femur. No gross malalignment at the hip or knee articulations. Arthro sis at the knee which is not fully evaluated but appears relatively similar to the 09/26/2017 left kne e series. Electronically signed by: JORGE MARIE MD (03/16/2021 5:51 AM) [facility]
== END 2021-03-16 05:11 | disposition home or self-care (01) ==
LOC: ER 22:15
DX: M79.605 Pain in left leg (principal); R07.89 Other chest pain; R06.02 Shortness of breath; K21.9 Gastro-esophageal reflux disease without esophagitis; E78.00 Pure hypercholesterolemia, unspecified; G43.909 Migraine, unspecified, not intractable, without status migrainosus; I10 Essential (primary) hypertension; F20.9 Schizophrenia, unspecified; I25.2 Old myocardial infarction; Z86.718 Personal history of other venous thrombosis and embolism; Z87.891 Personal history of nicotine dependence; Z90.49 Acquired absence of other specified parts of digestive tract; Z90.710 Acquired absence of both cervix and uterus; Z88.0 Allergy status to penicillin; Z88.1 Allergy status to other antibiotic agents; Z88.2 Allergy status to sulfonamides; Z88.5 Allergy status to narcotic agent; Z88.8 Allergy status to other drugs, medicaments and biological substances
CPT/HCPCS: 36415; 80048; 83880; 84484; 85025; 85610; 85730; 93005; 93971; 96374; 96376; 99285; J2270

== ENCOUNTER → 2021-11-10 | Outpatient (CLI) | payer OTHER, MEDICAID ==
[~2021-11-10] MED LIST changes: -VENL150C PO; +VENL150C3 PO
--- NOTE | 2021-11-10 16:46 | RAD ---
EXAMINATION: Magnetic resonance imaging (MRI) of the cervical spine without contrast 11/10/2021 3:05 PM HISTORY: Cervical radiculopathy, C5 TECHNIQUE: Multiplanar multi-weighted MRI of the cervical spine was performed without intravenous con trast using the standard cervical spine protocol. Contrast information: None administered COMPARISON: None available. FINDINGS: The millimeter retrolisthesis of C4 on C5. Mild disc height loss at C4-C5, C5-C6 and C6-C7 with assoc iated disc desiccation. T2 signal alteration involving the central concha suggestive of small vessel is chemic changes. Vertebral bodies demonstrate normal signal intensity on all sequences. No acute frac ture is identified; however, if trauma is suspected, a CT scan would be a more sensitive examination for fractures. The craniocervical junction is normal. The spinal cord signal intensity is normal in all sequences. No soft tissue abnormality is identified. Normal signal voids are present in the zenaida tebral arteries. C2-C3: The disk is normal in configuration. There is no facet arthropathy. There is no uncovertebral joint disease. There is no neuroforaminal stenosis. There is no spinal canal stenosis. C3-C4: The disk is normal in configuration. There is no facet arthropathy. There is no uncovertebral joint disease. There is no neuroforaminal stenosis. There is no spinal canal stenosis. C4-C5: There is a disc bulge with central disc protrusion. No significant facet arthropathy. Mild un covertebral joint disease. Mild left neuroforaminal stenosis. Mild spinal canal stenosis and accessor y by ligamentum flavum infolding. C5-C6: Mild disc bulge. Mild facet arthropathy. Mild uncovertebral joint disease. Mild left neurofora kade stenosis. Mild spinal canal stenosis. No deformity of the cord or cord signal abnormality. C6-C7: There is central disc protrusion. There is no facet arthropathy. There is no uncovertebral mera int disease. There is mild neuroforaminal stenosis. There is no spinal canal stenosis. C7-T1: The disk is normal in configuration. There is no facet arthropathy. There is no uncovertebral joint disease. There is no neuroforaminal stenosis. There is no spinal canal stenosis. IMPRESSION: Mild degenerative changes of the cervical spine as described in detail above. T2 signal hyperintensity within the central concha favors chronic small vessel ischemic changes. Electronically signed by: Kaylie Sheffield MD (11/10/2021 4:44 PM) [id number]
--- NOTE | 2021-11-10 17:00 | RAD ---
EXAMINATION: Magnetic resonance imaging (MRI) of the lumbar spine without contrast 11/10/2021 3:05 PM HISTORY: Lumbar back pain with radiculopathy affecting the left lower extremity TECHNIQUE: Multiplanar multi-weighted MRI of the lumbar spine was performed without intravenous contr ast using the standard lumbar spine protocol. Contrast information: None administered. COMPARISON: None available. FINDINGS: The alignment of the lumbar spine is normal. Schmorl's nodes are identified at T10-L4 without signifi cant height loss. Vertebral bodies demonstrate normal signal intensity on all sequences. There are n o compression fractures. The conus medullaris terminates at the level of L1. The distal spinal cord signal intensity is normal. Mild disc height loss at L4-L5. Disc desiccation at L3-L4, L4-L5 and L5- S1. Limited views of the abdomen and pelvis show no soft tissue abnormality. The aorta is normal. L1-L2: The disc is normal in configuration. There is no facet arthropathy. There is no neuroforaminal stenosis. There is no spinal canal stenosis. L2-L3: Mild disc bulge. Mild facet arthropathy. No significant neuroforaminal or spinal canal stenosi s. L3-L4: Mild disc bulge. Mild facet arthropathy. No neuroforaminal or spinal canal stenosis. L4-L5: There is a circumferential disc bulge with central disc protrusion. No significant facet arthr opathy. Mild bilateral neuroforaminal stenosis. Mild spinal canal stenosis. There is narrowing the ri ght lateral recess. L5-S1: Mild disc bulge. No significant facet arthropathy. No neuroforaminal or spinal canal stenosis. IMPRESSION: Mild degenerative changes of the lumbar spine as described in detail above. Electronically signed by: Kaylie Sheffield MD (11/10/2021 4:57 PM) [id number]
== END ==
LOC: MRI 14:33
PROVIDERS: ATTEND Physician Assistant
DX: M47.22 Other spondylosis with radiculopathy, cervical region (principal); M48.8X2 Other specified spondylopathies, cervical region; M48.02 Spinal stenosis, cervical region; M50.31 Other cervical disc degeneration, high cervical region; M47.26 Other spondylosis with radiculopathy, lumbar region; M48.061 Spinal stenosis, lumbar region without neurogenic claudication; M51.27 Other intervertebral disc displacement, lumbosacral region; M48.8X6 Other specified spondylopathies, lumbar region; M51.45 Schmorl's nodes, thoracolumbar region
CPT/HCPCS: 72141; 72148